=== PATIENT | male | born 1960 | race Caucasian/White ===

== ENCOUNTER 2018-12-15 09:04 | Emergency (ER) | payer BC | END 2018-12-15 09:15 | disposition left against medical advice (07) | LOC: UCEAST 09:04 | DX: Z53.8 Procedure and treatment not carried out for other reasons (principal) ==

== ENCOUNTER 2018-12-15 09:53 | Emergency (ER) | payer BC ==
[2018-12-15] MEDS ORDERED: NS 0.9% 1000 ML** 1,000 ML IV ONE (10:05)
--- NOTE | 2018-12-15 10:19 | ED ---
Complex/Multi-Sys Presentation - HPI Summary HPI Summary: This patient is a 58 year old M presenting to ED with a chief complaint of fatigue since 12/13/18. He is accompanied by his sister. Patient is originally from [place] and is traveling today. Patient states this is a flare of his Abdoulaye s disease, and the last time he had these symptoms he was hospitalized for low sodium levels. He was diagnosed with Addisons disease 20 years ago, and takes Cortef, Fludrocortisone, and Liothyronine. When he started feeling his symptoms , patient took 6 pills of Cortef in the morning and 4 pills of Cortef in the afternoon starting two days ago per his doctor at home. However, this has not helped. Patient had a flare up of ulcerative colitis a week ago with rectal bleeding, but it cleared up several days ago. The patient rates the pain 3/10 in severity. Symptoms aggravated by nothing. Symptoms alleviated by nothing. Patient reports lightheadedness, nausea, coughing. PMHx of Addisons disease, DM , ulcerative colitis, hypothyroidism. - History Of Current Complaint Chief Complaint: EDGeneral Time Seen by Provider: 12/15/18 10:02 Hx Obtained From: Patient Onset/Duration: Lasting Days - 12/13/18, Still Present Timing: Constant Severity Currently: Mild Severity Initially: Mild Aggravating Factor(s): Nothing Alleviating Factor(s): Nothing Associated Signs And Symptoms: Positive: Cough, Nausea, Other - Fatigue, lightheadedness - Allergies/Home Medications Allergies/Adverse Reactions: Allergies Allergy/AdvReac Type Severity Reaction Status Date / Time No Known Allergies Allergy Verified 12/15/18 10:00 PMH/Surg Hx/FS Hx/Imm Hx Endocrine/Hematology History: Reports: Hx Diabetes, Hx Thyroid Disease - Hypothyroidism, Other Endocrine/Hematological Disorders - [place]'s disease GI History: Reports: Other GI Disorders - Ulcerative colitis - Surgical History Surgery Procedure, Year, and Place: Hernia repair 2009 Infectious Disease History: No Infectious Disease History: Denies: Traveled Outside the [place] in Last 30 Days - Family History Known Family History: Positive: Diabetes, Other - Negative: [place]'s - Social History Alcohol Use: Occasionally Hx Substance Use: No Substance Use Type: Reports: None Hx Tobacco Use: No Smoking Status (MU): Never Smoked Tobacco Review of Systems Positive: Fatigue Positive: Cough Positive: Nausea Neurological: Other - Lightheadedness All Other Systems Reviewed And Are Negative: Yes Physical Exam - Summary Physical Exam Summary: Constitutional: Well-developed, Well-nourished, Alert. (-) Distressed Skin: Warm, Dry HENT: Normocephalic; Atraumatic Eyes: Conjunctiva normal Neck: Musculoskeletal ROM normal neck. (-) JVD, (-) Stridor Cardio: Rhythm regular, rate normal, Heart sounds normal; Intact distal pulses; Radial pulses are 2+ and symmetric. (-) Murmur Pulmonary/Chest wall: Effort normal. (-) Respiratory distress, (-) Wheezes, (-) Rales Abd: Soft, (-) tenderness, (-) Distension, (-) Guarding, (-) Rebound Musculoskeletal: (-) Edema Lymph: (-) Cervical adenopathy Neuro: Alert, Oriented x3 Psych: Mood and affect Normal Triage Information Reviewed: Yes Vital Signs On Initial Exam: Initial Vitals Temp Pulse Resp BP Pulse Ox 96.5 F 101 20 165/87 96 12/15/18 09:58 12/15/18 09:58 12/15/18 09:58 12/15/18 09:58 12/15/18 09:58 Vital Signs Reviewed: Yes Diagnostics - Vital Signs Vital Signs Temp Pulse Resp BP Pulse Ox 12/15/18 09:58 96.5 F 101 20 165/87 96 - Laboratory Result Diagrams: 12/15/18 10:25 12/15/18 10:25 Lab Statement: Any lab studies that have been ordered have been reviewed, and results considered in the medical decision making process. - Radiology CXR Radiology Interpretation Completed By: Radiologist Summary of Radiographic Findings: No radiographic evidence of acute cardiopulmonary disease. Dr. Sanchez has reviewed this radiology report. - EKG 1009 Cardiac Rate: NL - 92 BPM EKG Rhythm: Sinus Rhythm ST Segment: Normal Ectopy: None Summary of EKG Findings: An EKG at 1009 reveals normal sinus rhythm 92 BPM, nml axis, nml intervals. No STEMI. No acute changes. Re-Evaluation - Re-Evaluation First Eval Re-Evaluation Time: 11:04 Comment: Labs notable for sodium of 128 normal potassium. Patient to touch base w his spiritual counselor regarding disposition Second Eval Re-Evaluation Time: 11:36 Comment: Patient talked to his spiritual counselor who recommened he take an extra dose of fludracortisone and then can be discharged if he feels OK. Patient would like to be discharged. Complex Multi-Symp Course/Dx Course Of Treatment: 58-year-old male with a history of Addisons disease, hypothyroidism and diabetes who presents with fatigue and nausea. VSS NAD. PE with a well-appearing male. Check basic labs including electrolytes, troponin, EKG and chest x-ray given reported cough. Touch base w spiritual counselor Dr. Medina - Diagnoses Provider Diagnoses: Fatigue, Addisons disease Discharge - Sign-Out/Discharge Documenting (check all that apply): Patient Departure - Discharge Patient Received Moderate/Deep Sedation with Procedure: No - Discharge Plan Condition: Stable Disposition: HOME Prescriptions: Fludrocortisone Acetate TAB* [Florinef TAB*] 0.1 mg PO DAILY #1 tab Patient Education Materials: [place] Disease (ED), Fatigue (ED) Referrals: [facility] [Outside] - 3 Days Additional Instructions: You were seen for fatigue. Your labs are consistent with low sodium. We discussed this with your spiritual counselor. These take a half dose of your fludrocortisone if you're feeling worse and a half an hour. Follow up with primary care provider in 2-3 days. RETURN TO THE EMERGENCY DEPARTMENT WITH ANY NEW OR WORSENING SYMPTOMS. - Billing Disposition and Condition Condition: STABLE Disposition: Home - Attestation Statements Document Initiated by Joyce: Yes Documenting Scribe: Marty Casas Provider For Whom Joyce is Documenting (Include Credential): Jose Sanchez MD Scribe Attestation: I, Marty Casas, scribed for Jose Sanchez MD on 12/15/18 at 1212. Scribe Documentation Reviewed: Yes Provider Attestation: The documentation as recorded by the Marty matthews accurately reflects the service I personally performed and the decisions made by me, Jose Sanchez MD Status of Scribe Document: Viewed
[2018-12-15 10:36] LABS: ABS Basophils 0.1 10^3/ul (0-0.2); ABS Eosinophils 0.1 10^3/ul (0-0.6); ABS Lymphocytes 1.4 10^3/ul (1.0-4.8); ABS Monocytes 0.5 10^3/ul (0-0.8); ABS Neutrophils 10.8 10^3/ul (1.5-7.7); Eosinophil % 0.9 %; Hematocrit 42 % (42-52); Hemoglobin 14.3 g/dL (14.0-18.0); Mean Corpuscular HGB Conc 34 g/dL (31-36); Mean Corpuscular Hemoglobin 31 pg (27-31); Mean Corpuscular Volume 90 fL (80-94); Mean Platelet Volume 8.1 fL (7.4-10.4); Platelet Count 260 10^3/uL (150-450); Red Blood Count 4.66 10^6 /uL (4.18-5.48); Red Cell Distribution Width 14 % (10-15)
[2018-12-15 10:52] LABS: Albumin 4.5 g/dL (3.2-5.2); Albumin/Globulin Ratio 1.5 (1-3); BUN/Creatinine Ratio 22.5 (8-20); Calcium 9.2 mg/dL (8.6-10.3); EGFR African American 91.1 (>60); EGFR Non-African American 75.3 (>60); Globulin 3.1 g/dL (2-4); Magnesium 2.2 mg/dL (1.9-2.7); Potassium 4.2 mmol/L (3.5-5.0); Total Bilirubin 0.6 mg/dL (0.2-1.0); Total Protein 7.6 g/dL (6.4-8.9)
[2018-12-15 11:13] LABS: TSH (Thyroid Stimulating Horm) 1.24 mcIU/mL (0.34-5.60)
[2018-12-15 11:15] LABS: Free T4 1.16 ng/dL (0.61-1.12)
[2018-12-15] MEDS ORDERED: Fludrocortisone Acetate TAB* 0.1 MG PO ONE ×2 (11:36→11:46)
[2018-12-15 12:04] LABS: Urine Appearance Clear; Urine Bilirubin Negative (Negative); Urine Blood Negative (Negative); Urine Color Yellow; Urine Glucose 3+(>=500 mg/dL) (Negative); Urine Ketones 1+ (Negative); Urine Nitrite Negative (Negative); Urine Protein Negative (Negative); Urine Specific Gravity 1.022 (1.010-1.030); Urine Urobilinogen Negative (Negative)
[2018-12-15 12:26] VITALS: BP 165/79
== END 2018-12-15 12:40 | disposition home or self-care (01) ==
LOC: ED 09:53
DX: R53.83 Other fatigue (principal); E27.1 Primary adrenocortical insufficiency; E11.9 Type 2 diabetes mellitus without complications; K51.90 Ulcerative colitis, unspecified, without complications; E03.9 Hypothyroidism, unspecified; Z79.899 Other long term (current) drug therapy
CPT/HCPCS: 36415; 71046; 80053; 81003; 83605; 83735; 84439; 84443; 84484; 85025; 93005; 96360; 99282; A9270-GY